=== PATIENT | male | born 1970 | race Caucasian/White ===

== ENCOUNTER 2020-11-12 06:43 | Emergency (ER) | payer BC ==
[2020-11-12] MEDS ORDERED: Fluorescein 1 MG Ophth Strip EYELF ONE (07:18)
[2020-11-12] MEDS ORDERED: Tetracaine HCl/PF 0.5% 4 ML Bottle EYELF ONE (07:19)
--- NOTE | 2020-11-12 07:24 | EDM.PDOC ---
ED HPI GENERAL MEDICAL PROBLEM - General Chief Complaint: Eye Problems Stated Complaint: LEFT EYE SWOLLEN Time Seen by Provider: 11/12/20 07:16 Source of Information: Reports: Patient History Limitations: Reports: No Limitations - History of Present Illness INITIAL COMMENTS - FREE TEXT/NARRATIVE: Patient is a 50-year-old male who presents today for left eye pain. 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 Patient states that he has been having pain with movement of the thigh watery and the feeling is radiation of his inside there. Patient denies any other complaints fever chills nausea vomiting or change in vision. Left eye/headache Pain Score (Numeric/FACES): 7 - Related Data Allergies Allergy/AdvReac Type Severity Reaction Status Date / Time No Known Allergies Allergy Verified 11/12/20 06:52 Home Meds: Home Meds Erythromycin Base [Erythromycin 0.5% Ophth Oint] 1 applic OP Q4H 5 Days #1 tube 11/12/20 [Rx] Past Medical History HEENT History: Reports: Impaired Vision Other HEENT History: Patient wears glasses. - Infectious Disease History Infectious Disease History: Reports: Chicken Pox, Influenza - Past Surgical History Musculoskeletal Surgical History: Reports: Other (See Below) Other Musculoskeletal Surgeries/Procedures:: Right hand surgery. Social & Family History - Family History Family Medical History: No Pertinent Family History - Tobacco Use Tobacco Use Status *Q: Current Every Day Tobacco User Years of Tobacco use: 35 Packs/Tins Daily: 1 - Caffeine Use Caffeine Use: Reports: Energy Drinks - Recreational Drug Use Recreational Drug Use: No ED ROS GENERAL - Review of Systems Review Of Systems: See Below Constitutional: Reports: No Symptoms HEENT: Reports: Eye Pain Respiratory: Reports: No Symptoms Cardiovascular: Reports: No Symptoms Endocrine: Reports: No Symptoms GI/Abdominal: Reports: No Symptoms : Reports: No Symptoms Musculoskeletal: Reports: No Symptoms Skin: Reports: No Symptoms Neurological: Reports: No Symptoms Psychiatric: Reports: No Symptoms Hematologic/Lymphatic: Reports: No Symptoms Immunologic: Reports: No Symptoms ED EXAM GENERAL W FULL EYE - Physical Exam Exam: See Below Exam Limited By: No Limitations General Appearance: Alert, WD/WN, No Apparent Distress Eye Exam: Left Eye: Periorbital Changes, Bilateral Eye: EOMI, PERRL Visual Acuity (R) 20/: 20 Visual Acuity (L) 20/: 25 IOP (R) in mmH IOP (L) in mmH IOP Measure with (Equipment): Tonopen Eyelids: Left: Foreign Body, Bilateral: Normal Appearance Cornea Exam: Left: Foreign Body Extraocular Movements: Bilateral: Intact Pupils: Normal Accommodation Pupillary Reaction: Bilateral: Brisk Head: Atraumatic Respiratory/Chest: No Respiratory Distress Cardiovascular: Normal Peripheral Pulses, Regular Rate, Rhythm Neurological: Alert, Oriented, Normal Cognition, Normal Gait Course - Vital Signs Last Recorded V/S: Last Vital Signs Temp 97.6 F 11/12/20 06:54 Pulse 92 11/12/20 06:54 Resp 20 11/12/20 06:54 BP 125/92 H 11/12/20 06:54 Pulse Ox 97 11/12/20 06:54 - Orders/Labs/Meds Orders: Active Orders 24 hr Category Date Time Status Visual Acuity [Vision Test] [RC] ASDIRECTED Care 11/12/20 07:20 Active Meds: Medications Discontinued Medications Generic Name Dose Route Start Last Admin Trade Name Brian PRN Reason Stop Dose Admin Fluorescein Sodium 1 mg 11/12/20 07:18 11/12/20 07:37 Fluorescein 1 Mg Ophth Strip EYELF 11/12/20 07:19 1 mg ONETIME ONE Administration Tetracaine HCl 2 ml 11/12/20 07:19 11/12/20 07:37 Tetracaine Hcl/Pf 0.5% 4 Ml Bottle EYELF 11/12/20 07:20 2 ml ASDIRECTED ONE Administration - Re-Assessments/Exams Free Text/Narrative Re-Assessment/Exam: 11/12/20 08:05 After doing a was left exam we saw the foreign body. We attempted to remove with a 27-gauge needle without success. We did tilt a Q-tip and saline and again could not remove the foreign body. We spoke to ophthalmology at [facility] and ophthalmology there agrees to see patient today. Patient will be discharged to follow-up in the clinic today we will also give patient eye abx ointment as well. Departure - Departure Time of Disposition: 08:01 Disposition: Home, Self-Care 01 Condition: Good Clinical Impression: Corneal foreign body - Discharge Information *PRESCRIPTION DRUG MONITORING PROGRAM REVIEWED*: Not Applicable *COPY OF PRESCRIPTION DRUG MONITORING REPORT IN PATIENT VLADIMIR: Not Applicable Referrals: PCP,None [Primary Care Provider] - Forms: ED Department Discharge Additional Instructions: The following information is given to patients seen in the emergency department who are being discharged to home. This information is to outline your options f or follow-up care. We provide all patients seen in our emergency department with a follow-up referral. The need for follow-up, as well as the timing and circumstances, are variable depending upon the specifics of your emergency department visit. If you don't have a primary care physician on staff, we will provide you with a referral. We always advise you to contact your personal physician following an emergency department visit to inform them of the circumstance of the visit and for follow-up with them and/or the need for any referrals to a consulting specialist. The emergency department will also refer you to a specialist when appropriate. This referral assures that you have the opportunity for follow-up care with a specialist. All of these measure are taken in an effort to provide you with optimal care, which includes your follow-up. Under all circumstances we always encourage you to contact your private physician who remains a resource for coordinating your care. When calling for follow-up care, please make the office aware that this follow-up is from your recent emergency room visit. If for any reason you are refused follow-up, please contact the [facility] Emergency Department at and asked to speak to the emergency department charge nurse. Please follow up with your primary care physician. If you do not have a primary care physician, see below: [place] [id number], [address], [address] [place] [address], [phone] Please go to the eye clinic immediately in my not. They are spreading you to be there today before noon. We also sent you some antibiotics to your pharmacy today for eye. If any change in visions or other complaints please return to the ED. Dr. Morales Sepsis Event Note (ED) - Evaluation Sepsis Screening Result: No Definite Risk - Focused Exam Vital Signs: Vital Signs Temp Pulse Resp BP Pulse Ox 11/12/20 06:54 97.6 F 92 20 125/92 H 97 - My Orders Last 24 Hours: My Active Orders 11/12/20 07:20 Visual Acuity [Vision Test] [RC] ASDIRECTED - Assessment/Plan Last 24 Hours: My Active Orders 11/12/20 07:20 Visual Acuity [Vision Test] [RC] ASDIRECTED Plan: Patient is a 50-year-old male who presents today for eye irritation. Patient was grinding metal yesterday is not sure if something got into his eye. On exam there seems to be a small possible metal foreign body left eye. Will perform visual acuity was lamp exam and reassess.
== END 2020-11-12 08:20 | disposition home or self-care (01) ==
LOC: MW.ED 06:43
DX: T15.02XA Foreign body in cornea, left eye, initial encounter (principal); Z72.0 Tobacco use
CPT/HCPCS: 99283

== ENCOUNTER 2022-05-26 09:47 | Emergency (ER) | payer BC, OTHER | END 2022-05-26 12:13 | disposition home or self-care (01) | LOC: MW.ED 09:47 | DX: U07.1 COVID-19 (principal) | CPT/HCPCS: 99283; U0002 ==

== ENCOUNTER 2024-08-16 18:14 | Emergency (ER) | payer BC ==
[2024-08-16] MEDS: Tetracaine HCl/PF 0.5% 4 ML Bottle EYEBOTH ONE (19:37)
[2024-08-16] MEDS: Diphtheria,Pertussis(Acell),Tetanus Vaccine 0.5 ML Syringe IM ONE (19:38)
[2024-08-16] MEDS ORDERED: Erythromycin Base 0.5% Ophth Oint 1 GM Tube EYEBOTH ONE (19:41)
== END 2024-08-16 23:51 | disposition home or self-care (01) ==
LOC: MW.ED 18:14
DX: T15.92XA Foreign body on external eye, part unspecified, left eye, initial encounter (principal); Z23 Encounter for immunization; F17.210 Nicotine dependence, cigarettes, uncomplicated; W22.8XXA Striking against or struck by other objects, initial encounter
CPT/HCPCS: 65205; 90471; 99283; A9270; 65220; 99282; J3490